=== PATIENT | male | born 1935 | race Caucasian/White ===

== ENCOUNTER 2017-11-16 01:52 | Outpatient (CLI) | payer OTHER ==
[2016-05-12 00:28] VITALS: BMI 38.3
== END 2017-11-16 02:12 | disposition short-term general hospital (02) ==
LOC: AMBL 01:52
PROVIDERS: ATTEND Family Medicine
DX: M79.672 Pain in left foot (principal); M79.671 Pain in right foot

== ENCOUNTER 2018-02-07 19:46 | Outpatient (CLI) ==
[2016-05-12 00:28] VITALS: BMI 38.3
== END 2018-02-07 20:07 | disposition short-term general hospital (02) ==
LOC: AMBL 19:46
PROVIDERS: ATTEND Internal Medicine Geriatric Medicine
DX: R05 Cough (principal); R06.02 Shortness of breath

== ENCOUNTER 2018-02-10 13:40 | Outpatient (CLI) ==
[2016-05-12 00:28] VITALS: BMI 38.3
== END 2018-02-10 13:59 | disposition short-term general hospital (02) ==
LOC: AMBL 13:40
PROVIDERS: ATTEND Internal Medicine Geriatric Medicine
DX: R09.89 Other specified symptoms and signs involving the circulatory and respiratory systems (principal); R05 Cough; T17.900A Unspecified foreign body in respiratory tract, part unspecified causing asphyxiation, initial encounter

== ENCOUNTER 2018-03-01 15:03 | Outpatient (CLI) ==
[2016-05-12 00:28] VITALS: BMI 38.3
--- NOTE | 2018-03-02 08:17 | DI ---
EXAM: Right toe, second digit three-view HISTORY: Pain right second toe COMPARISON: None FINDINGS/IMPRESSION: No fracture or dislocation identified. Flexed position of the toes somewhat li mits evaluation. 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
== END 2018-03-01 15:04 | disposition home or self-care (01) ==
LOC: OPMED 15:03
PROVIDERS: ATTEND Family Medicine
DX: I87.2 Venous insufficiency (chronic) (peripheral) (principal); L03.115 Cellulitis of right lower limb; L03.116 Cellulitis of left lower limb; M79.674 Pain in right toe(s)

== ENCOUNTER 2018-03-03 13:20 | Outpatient (CLI) ==
[2016-05-12 00:28] VITALS: BMI 38.3
== END 2018-03-03 13:21 | disposition home or self-care (01) ==
LOC: NONPT 13:20
PROVIDERS: ATTEND Family Medicine
DX: I50.9 Heart failure, unspecified (principal); N19 Unspecified kidney failure
CPT/HCPCS: 80048

== ENCOUNTER 2018-03-16 22:48 | Observation (INO) | payer OTHER ==
[2018-03-16] MEDS ORDERED: DEXTROSE 50%-WATER ABBOJECT ONE (23:08)
[2018-03-16] MEDS ORDERED: DEXTROSE 50%-WATER ABBOJECT IVP STA ×2 (23:14→23:15)
[2018-03-16] MEDS ORDERED: DEXTROSE 5%-NS IV SOLUTION 1,000 ML IV STA ×2 (23:15→23:17)
--- NOTE | 2018-03-17 00:26 | ED.PDOC ---
General ED Provider: Dr. KIM BHATIA-ER Chief Complaint: Hypoglycemia Stated Complaint: his bs is low--30---given f30---xl improved then down to 40--- takes diabeta at the long-term Time Seen by Physician: 22:55 Mode of Arrival: Ambulance Information Source: Patient, EMT Exam Limitations: No limitations Primary Care Provider: RONALD DONNELLY Nursing and Triage Documentation Reviewed and Agree: Yes Does patient meet sepsis criteria?: No System Inflammatory Response Syndrome: Not Applicable Sepsis Protocol: For patient's 13 years and over: Temp is 96.8 and below OR 101 and greater Pulse >90 BPM Resp >20/minute Acutely Altered Mental Status Are patient's symptoms suggestive of a new infection, such as: -Pneumonia -Skin, Soft Tissue -Endocarditis -UTI -Bone, Joint Infection -Implantable Device -Acute Abdominal Infection -Wound Infection -Meningitis -Blood Stream Catheter Infection -Unknown Endocrine Complaint Exam - Diabetic Complication Complaint/Exam Onset/Duration: iunknown Symptoms Are: Still present Timing: Constant Initial Severity: Mild Current Severity: Moderate Character: Lethargic, Unresponsive Aggravating: Reports: Diet change Associated Signs and Symptoms: Denies: Decreased LOC, Polydipsia, Polyuria, Polyphagia, Weight loss, Abdominal pain, Nausea, Vomiting, Fever, Diaphoresis, Fruity breath Related History: Reports: DM 2 Acetone on Breath: No Dry Mucous Membranes: No Kussmaul Respirations: No Glascow Coma Scale (see protocol): 15 Meningeal Signs: No Focal Weakness: None Focal Sensory Loss: None Gait: Normal Nystagmus Present: No Gag Reflex Present: Yes Finger to Nose: Normal Romberg Test Positive: No Babinski Sign: Negative Right, Negative Left Heel to Toe Normal: Yes Differential Diagnoses: Hypoglycemia Quality Indicator For Non-Traumatic Chest Pain/Syncope: EKG Performed Review of Systems - Review Of Systems Constitutional: Reports: No symptoms Eyes: Reports: No symptoms Ears, Nose, Mouth, Throat: Reports: No symptoms Respiratory: Reports: No symptoms Cardiac: Reports: No symptoms GI: Reports: No symptoms : Reports: No symptoms Musculoskeletal: Reports: No symptoms Skin: Reports: No symptoms Neurological: Reports: Cognitive dysfunction Endocrine: Reports: No symptoms Hematologic/Lymphatic: Reports: No symptoms All Other Systems: Reviewed and Negative Past Medical History - Past Medical History Previously Healthy: No Endocrine: Reports: Unknown Cardiovascular: Reports: Unknown Respiratory: Reports: Unknown Hematological: Reports: Unknown Gastrointestinal: Reports: Unknown Genitourinary: Reports: Unknown Neuro/Psych: Reports: Unknown Musculoskeletal: Reports: Unknown Cancer: Reports: Unknown - Surgical History General Surgical History: Reports: Unknown - Family History Family History: Reports: Unknown - Social History Smoking Status: Former smoker Hx Substance Use: No Alcohol Screening: None Lives: In Care Home - Immunizations Tetanus Shot up to Date: No (unsure) Physical Exam - Physical Exam Appearance: Ill-appearing, No pain distress, Well-nourished Eyes: WOLFGANG, EOMI, Conjunctiva clear ENT: Ears normal, Nose normal, Oropharynx normal Neck: Supple Respiratory: Airway patent, Breath sounds clear, Breath sounds equal, Respirations nonlabored Cardiovascular: RRR, Pulses normal, No rub, No murmur GI/: Soft Musculoskeletal: Normal strength Skin: Warm, Dry, Normal color Neurological: Alert, Disoriented Psychiatric: Affect appropriate, Mood appropriate Interpretation - EKG Interpretation Time of EKG #1: 22:55 Rate: Normal Rhythm: Other Ectopy: None [place]: NL ST Segment: Normal Interpretation: atrial fib Re-Evaluation - Re-Evaluation Time of Re-Evaluation: 00:29 Status: Improved Vital Signs Stable: Yes Pain Level: 0 Appearance: NAD Lungs: Clear Skin: Warm and Dry Neuro: Alert and Oriented X3 CV: RRR Additional Comments: son agrees mental status is back to baseline Physician Notification - Case Discussed Physician Notified: dr donnelly notified Time of Notification: 00:29 Critical Care Note - Critical Care Note Total Time (mins): 30 Course - Course Hematology/Chemistry: 03/16/18 23:35 03/16/18 23:35 Orders, Labs, Meds: Lab Review 03/16/18 03/16/18 23:35 23:35 WBC 12.16 H RBC 4.05 L Hgb 10.3 L Hct 33.2 L MCV 82.0 MCH 25.4 L MCHC 31.0 L RDW Coeff of Cedric 15.5 H Plt Count 226 Immature Gran % (Auto) 0.6 Neut % (Auto) 79.3 Lymph % (Auto) 11.0 [place] % (Auto) 6.1 Eos % (Auto) 2.3 Baso % (Auto) 0.7 Immature Gran # (Auto) 0.1 Neut # (Auto) 9.7 H Lymph # (Auto) 1.3 [place] # (Auto) 0.7 Eos # (Auto) 0.3 Baso # (Auto) 0.1 Sodium 138.7 Potassium 3.77 Chloride 102.1 Carbon Dioxide 31.0 H Anion Gap 9.37 BUN 19.7 Creatinine 1.22 H Estimated GFR (MDRD) 57.00 BUN/Creatinine Ratio 16.14 Glucose 179.4 H Calcium 8.95 Total Creatine Kinase < 20.0 L Troponin I < 0.012 Orders Category Date Time Status ADMIT OBSERVATION [PLACE PATIENT OBSERVATION] .TO ADMISSION 03/17/18 00:31 Active SCU (MONITORED BED) EKG-(ED ONLY) Stat CARDIO 03/16/18 22:58 Completed EKG-(IP & OP ONLY) DAILY CARDIO 03/18/18 06:00 Ordered EKG-(IP & OP ONLY) DAILY CARDIO 03/19/18 06:00 Ordered OXYGEN Routine CARDIO 03/17/18 00:33 Active ACTIVITY .BR with BRP CARE 03/17/18 00:32 Active BLOOD GLUCOSE MONITORING Q1HR CARE 03/17/18 00:32 Active BLOOD GLUCOSE MONITORING Q1HR CARE 03/17/18 00:39 Active GIVE HS SNACK 2100 CARE 03/17/18 00:33 Active INTAKE & OUTPUT Q8HR CARE 03/17/18 00:32 Active TELEMETRY MONITORING TELE CARE 03/17/18 00:32 Active VITAL SIGNS Q4HR CARE 03/17/18 00:32 Active ADA 1800 ANATOLIY. DIET DIETARY 03/17/18 Breakfast Ordered HS SNACK DIETARY 03/17/18 Dinner Ordered ACCUCHECK (ED) [ED ACCUCHECK ASSESSMENT] .ONCE EMERGENCY 03/16/18 22:58 Active ACCUCHECK (ED) [ED ACCUCHECK ASSESSMENT] .ONCE EMERGENCY 03/16/18 23:16 Active ACCUCHECK (ED) [ED ACCUCHECK ASSESSMENT] Q1HR EMERGENCY 03/16/18 23:41 Active IV [ED IV/MEDIPORT/POWERPORT] .ONCE EMERGENCY 03/16/18 23:14 Active BASIC METABOLIC PANEL Stat LAB 03/16/18 23:35 Completed CBC W/ AUTO DIFF DAILY@0600 LAB 03/17/18 06:00 Ordered CBC W/ AUTO DIFF DAILY@0600 LAB 03/18/18 06:00 Ordered CBC W/ AUTO DIFF Stat LAB 03/16/18 23:35 Completed COMPREHENSIVE METABOLIC PANEL DAILY@0600 LAB 03/17/18 06:00 Ordered COMPREHENSIVE METABOLIC PANEL DAILY@0600 LAB 03/18/18 06:00 Ordered CREATINE KINASE Stat LAB 03/16/18 23:35 Completed TROPONIN I Stat LAB 03/16/18 23:35 Completed 0.9 % Sodium Chloride [Saline Flush] MEDS 03/16/18 23:14 Ordered 1 syr IVF PRN PRN Albuterol Sulfate [Proair Hfa] MEDS 03/17/18 00:33 Ordered 2 puff IH Q6H PRN Aspirin [Aspirin Chewable] MEDS 03/17/18 08:00 Ordered 81 mg PO DAILYWM Budesonide/Formoterol Fumarate [Symbicort 160-4.5 Mcg MEDS 03/17/18 09:00 Ordered Inhaler] 2 puff IH BID Carvedilol [Coreg] MEDS 03/17/18 09:00 Ordered 25 mg PO BID Dabigatran Etexilate Mesylate [Pradaxa] MEDS 03/17/18 09:00 Ordered 75 mg PO BID Dextrose 5 % and 0.9 % NaCl [Dextrose 5%-Ns IV Solution MEDS 03/16/18 23:15 Discontinued ] 1,000 ml IV 125 mls/hr Dextrose 5 % and 0.9 % NaCl [Dextrose 5%-Ns IV Solution MEDS 03/16/18 23:17 Active ] 1,000 ml IV 50 mls/hr Dextrose 50 % in Water [Dextrose 50%-Water Abboject] MEDS 03/16/18 23:14 Discontinued 100 ml IVP ONCE STA Dextrose 50 % in Water [Dextrose 50%-Water Abboject] MEDS 03/16/18 23:08 Discontinued 50 ml .ROUTE .STK-MED ONE Dextrose 50 % in Water [Dextrose 50%-Water Abboject] MEDS 03/16/18 23:15 Discontinued 50 ml IVP ONCE STA Felodipine [Plendil] MEDS 03/17/18 09:00 Ordered 5 mg PO DAILY Furosemide [Lasix Tab] MEDS 03/17/18 09:00 Ordered 40 mg PO BID Insulin Regular, Human [Humulin R] MEDS 03/17/18 00:38 Ordered See Protocol SUBCUT PRN PRN Levothyroxine Sodium [Synthroid] MEDS 03/17/18 09:00 Ordered 200 mcg PO DAILY Lovastatin [Mevacor] MEDS 03/17/18 09:00 Ordered 40 mg PO DAILY Nitroglycerin [Nitrostat] MEDS 03/17/18 00:33 Ordered 0.4 mg SL Q5MIN X 3 DOSES PRN Omeprazole [Prilosec] MEDS 03/17/18 06:30 Ordered 20 mg PO QDAC Prazosin HCl [Minipress] MEDS 03/17/18 09:00 Ordered 2 mg PO BID Quinapril HCl [Accupril] MEDS 03/17/18 09:00 Ordered 20 mg PO DAILY Sulfamethoxazole/Trimethoprim [Bactrim Ds 800/160 mg] MEDS 03/17/18 09:00 Ordered DOSE tab PO BID Tamsulosin HCl [Flomax] MEDS 03/17/18 09:00 Ordered 0.4 mg PO DAILY RESUSCITATION STATUS Routine OTHERS 03/17/18 00:32 Ordered Medications Generic Name Dose Route Start Last Admin Trade Name Freq PRN Reason Stop Dose Admin Albuterol Sulfate 2 puff 03/17/18 00:33 Proair Hfa IH Q6H PRN Wheezing Aspirin 81 mg 03/17/18 08:00 Aspirin Chewable PO DAILYWM [facility] Budesonide/Formoterol Fumarate 2 puff 03/17/18 09:00 Symbicort 160-4.5 Mcg Inhaler IH BID [facility] Dabigatran 75 mg 03/17/18 09:00 Pradaxa PO BID HARDEEP Felodipine 5 mg 03/17/18 09:00 Plendil PO DAILY [facility] Furosemide 40 mg 03/17/18 09:00 Lasix Tab PO BID [facility] Dextrose/Sodium Chloride 1,000 mls @ 50 mls/hr 03/16/18 23:17 03/16/18 23:20 Dextrose 5%-Ns Iv Solution IV 03/17/18 19:14 50 mls/hr .Q20H STA Administration Insulin Human Regular 0 unit 03/17/18 00:38 Humulin R SUBCUT PRN PRN Hyperglycemica Protocol Lovastatin 40 mg 03/17/18 09:00 Mevacor PO DAILY HARDEEP Nitroglycerin 0.4 mg 03/17/18 00:33 Nitrostat SL Q5MIN X 3 DOSES PRN Chest Pain Non-Formulary Medication 25 mg 03/17/18 09:00 Carvedilol [Coreg] PO BID HARDEEP Non-Formulary Medication 200 mcg 03/17/18 09:00 Levothyroxine Sodium [Synthroid] PO DAILY [facility] Non-Formulary Medication 2 mg 03/17/18 09:00 Prazosin Hcl [Minipress] PO BID HARDEEP Non-Formulary Medication 20 mg 03/17/18 09:00 Quinapril Hcl [Accupril] PO DAILY HAR[facility] Omeprazole 20 mg 03/17/18 06:30 Prilosec PO QDAC [facility]DE[facility] Sodium Chloride 1 syr 03/16/18 23:14 Saline Flush IVF PRN PRN To flush IV Tamsulosin HCl 0.4 mg 03/17/18 09:00 Flomax PO DAILY HARDEEP Trimethoprim/Sulfamethoxazole tab 03/17/18 09:00 Bactrim Ds 800/160 Mg PO BID HARDEEP Discontinued Medications Generic Name Dose Route Start Last Admin Trade Name Freq PRN Reason Stop Dose Admin Dextrose 100 ml 03/16/18 23:14 03/16/18 23:18 Dextrose 50%-Water Abboject IVP 03/16/18 23:15 100 ml ONCE STA Administration Dextrose 50 ml 03/16/18 23:15 03/16/18 23:20 Dextrose 50%-Water Abboject IVP 03/16/18 23:16 Not Given ONCE STA Dextrose/Sodium Chloride 1,000 mls @ 125 mls/hr 03/16/18 23:15 Dextrose 5%-Ns Iv Solution IV 03/17/18 07:14 .Q8H STA Vital Signs: Temp Pulse Resp BP Pulse Ox 03/16/18 22:50 97.2 F L 64 24 158/96 H 92 L Departure - Departure Time of Disposition: 00:29 Disposition: PLACED OBSERVATION Discharge Problem: Hypoglycemia Instructions: Hypoglycemia in a Person with Diabetes (ED) Condition: Stable Pt referred to PMD for follow-up: Yes IPMP verified?: No Allergies/Adverse Reactions: Allergies No Known Allergies Allergy (Verified 05/12/16 00:28) Home Medications: Ambulatory Orders Albuterol Sulfate [Proair Hfa] 2 puff IH Q6H PRN 03/20/14 Aspirin [Aspirin Chewable] 81 mg PO DAILYWM 03/20/14 Budesonide/Formoterol Fumarate [Symbicort 160-4.5 Mcg Inhaler] 2 puff IH BID Calcium Carbonate/Vitamin D3 [Calcium 600 + Vit D 200 Tablet] 1 each PO BID Carvedilol [Coreg] 25 mg PO BID 03/20/14 Felodipine [Plendil] 5 mg PO DAILY 03/20/14 Fluticasone/Salmeterol 250/50 [Advair 250-50 Diskus] 1 puff IH BID 03/20/14 Furosemide [Lasix] 40 mg PO BID 03/20/14 Glyburide [Diabeta] 5 mg PO TID 03/20/14 Levothyroxine Sodium [Synthroid] 200 mcg PO DAILY 03/20/14 Lovastatin [Mevacor] 40 mg PO DAILY 03/20/14 Metformin HCl [Glucophage] 1,000 mg PO BIDWM 03/20/14 Nitroglycerin [Nitrostat] 0.4 mg SL Q5MIN X 3 DOSES PRN 03/20/14 Omeprazole [Prilosec] 20 mg PO QDAC 03/20/14 Prazosin HCl [Minipress] 2 mg PO BID 03/20/14 Quinapril HCl [Accupril] 20 mg PO DAILY 03/20/14 Sulfamethoxazole/Trimethoprim [Bactrim Ds Tablet] 1 each PO BID 03/20/14 Tamsulosin HCl [Flomax] 0.4 mg PO DAILY 03/20/14 Dabigatran Etexilate Mesylate [Pradaxa] 75 mg PO BID 02/16/15 Disposition Discussed With: Patient, Family
[2018-03-17] MEDS ORDERED: NITROSTAT SL PRN (00:33)
[2018-03-17] MEDS ORDERED: PROAIR HFA IH PRN (00:33)
[2018-03-17 02:28] VITALS: BMI 44.9
[2018-03-17] MEDS ORDERED: PRILOSEC PO SCH (06:30)
[2018-03-17] MEDS ORDERED: PLENDIL PO SCH (09:00)
[2018-03-17] MEDS ORDERED: PRAZOSIN HCL 2 MG PO SCH (09:00)
[2018-03-17] MEDS ORDERED: MEVACOR PO SCH ×2 (09:00→21:00)
[2018-03-17] MEDS ORDERED: SYMBICORT 160-4.5 MCG INHALER IH SCH (09:00)
[2018-03-17] MEDS ORDERED: BACTRIM DS 800/160 MG PO SCH (09:00)
[2018-03-17] MEDS ORDERED: LASIX TAB PO SCH (09:00)
[2018-03-17] MEDS ORDERED: QUINAPRIL HCL 20 MG PO SCH (09:00)
[2018-03-17] MEDS: CALMOSEPTINE OINTMENT TP SCH ×2 (09:32→22:31)
[2018-03-17] MEDS ORDERED: ACETAMINOPHEN PO PRN (11:29)
[2018-03-17] MEDS ORDERED: SIMETH PO PRN (11:29)
[2018-03-17] MEDS ORDERED: GUAIFENESIN PO PRN (11:29)
[2018-03-17] MEDS ORDERED: MAG HYDROX PO PRN (11:29)
[2018-03-17] MEDS ORDERED: AL HYDROX PO PRN (11:29)
[2018-03-17] MEDS ORDERED: POTASSIUM CHLORIDE PO SCH (11:45)
[2018-03-17] MEDS ORDERED: NON-FORMULARY MEDICATION (Diltiazem Hcl [Cardizem] 120 MG) PO SCH (11:45)
[2018-03-17] MEDS: ASPIRIN CHEWABLE PO SCH (12:27)
[2018-03-17] MEDS: NON-FORMULARY MEDICATION (Carvedilol [Coreg] 25 MG) PO SCH ×2 (12:28→22:24)
[2018-03-17] MEDS: NON-FORMULARY MEDICATION (Buspirone Hcl [Buspirone Hcl] 7.5 MG) PO SCH ×2 (12:28→22:21)
[2018-03-17] MEDS: SALMETEROL IH SCH ×2 (12:29→22:25)
[2018-03-17] MEDS: FLUTICASONE IH SCH ×2 (12:29→22:25)
[2018-03-17] MEDS: FLOMAX PO SCH (12:29)
[2018-03-17] MEDS: NON-FORMULARY MEDICATION (Levothyroxine Sodium [Synthroid] 200 MCG) PO SCH (12:30)
[2018-03-17] MEDS: PRADAXA PO SCH ×2 (12:30→22:28)
[2018-03-17] MEDS: HUMULIN R SUBCUT PRN ×3 (12:31→18:00)
[2018-03-17] MEDS ORDERED: LANTUS SUBCUT ONE (21:00)
[2018-03-17] MEDS ORDERED: MAGNESIUM PO SCH (21:00)
[2018-03-17] MEDS ORDERED: INSULIN GLARGINE HUM REC ANLOG 75 UNIT SQ SCH (21:00)
[2018-03-17] MEDS: ACETAMINOPHEN PO PRN (22:00)
[2018-03-17] MEDS: HYDROCODONE PO PRN (22:00)
[2018-03-17] MEDS: [UNRECOGNIZED DRUG - OTHER] PO PRN (22:00)
[2018-03-17] MEDS ORDERED: BENADRYL ONE (22:06)
[2018-03-17] MEDS ORDERED: TYLENOL ONE (22:06)
[2018-03-17] MEDS ORDERED: BENADRYL PO SCH (22:30)
[2018-03-18] MEDS: HUMULIN R SUBCUT PRN ×4 (01:55→14:20)
[2018-03-18] MEDS: NON-FORMULARY MEDICATION (Levothyroxine Sodium [Synthroid] 200 MCG) PO SCH (06:08)
[2018-03-18] MEDS: ACETAMINOPHEN PO PRN (06:09)
[2018-03-18] MEDS: [UNRECOGNIZED DRUG - OTHER] PO PRN (06:09)
[2018-03-18] MEDS: HYDROCODONE PO PRN (06:09)
[2018-03-18] MEDS ORDERED: LASIX TAB PO SCH (06:30)
[2018-03-18] MEDS ORDERED: PRILOSEC PO SCH (06:30)
[2018-03-18] MEDS ORDERED: NON-FORMULARY MEDICATION (Furosemide [Lasix Tab] 40 MG) PO SCH (06:30)
[2018-03-18] MEDS ORDERED: HYDROCODONE PO PRN (07:30)
[2018-03-18] MEDS ORDERED: ACETAMINOPHEN PO PRN (07:30)
[2018-03-18] MEDS ORDERED: [UNRECOGNIZED DRUG - OTHER] PO PRN (07:30)
[2018-03-18] MEDS ORDERED: NON-FORMULARY MEDICATION (Ferrous Sulfate [Ferrous Sulfate] 325 MG) PO SCH (09:00)
[2018-03-18] MEDS ORDERED: NON-FORMULARY MEDICATION (Calcitriol [Calcitriol] 0.25 MCG) PO SCH (09:00)
[2018-03-18] MEDS ORDERED: MAGNESIUM PO SCH (09:00)
[2018-03-18] MEDS ORDERED: NON-FORMULARY MEDICATION (Diltiazem Hcl [Cardizem] 120 MG) PO SCH (09:00)
[2018-03-18] MEDS ORDERED: POTASSIUM CHLORIDE PO SCH (09:00)
[2018-03-18] MEDS ORDERED: NON-FORMULARY MEDICATION (Buspirone Hcl [Buspirone Hcl] 7.5 MG) PO SCH (09:00)
[2018-03-18] MEDS ORDERED: FLUTICASONE IH SCH (09:00)
[2018-03-18] MEDS ORDERED: DOCUSATE SODIUM PO SCH (09:00)
[2018-03-18] MEDS ORDERED: SALMETEROL IH SCH (09:00)
[2018-03-18] MEDS ORDERED: MULTIVITAMIN PO SCH (09:00)
[2018-03-18] MEDS: PRADAXA PO SCH (09:51)
[2018-03-18] MEDS: ASPIRIN CHEWABLE PO SCH (09:55)
[2018-03-18] MEDS: FLOMAX PO SCH (09:59)
[2018-03-18] MEDS: NON-FORMULARY MEDICATION (Carvedilol [Coreg] 25 MG) PO SCH (10:07)
[2018-03-18] MEDS: CALMOSEPTINE OINTMENT TP SCH (10:08)
[2018-03-18 13:27] VITALS: BP 108/65; TEMP 98.6
[2018-03-19] MEDS ORDERED: NON-FORMULARY MEDICATION (Furosemide [Lasix Tab] 40 MG) PO SCH (06:30)
== END 2018-03-18 15:15 ==
LOC: ED 22:48 → SCU 03-17 00:52
PROVIDERS: ADMIT Family Medicine; ATTEND Family Medicine
DX: E11.9 Type 2 diabetes mellitus without complications (principal); R41.0 Disorientation, unspecified
CPT/HCPCS: 36415; 80048; 80053; 82550; 82962; 84484; 85025; 93005; 93010; 96360; 96361; 96374; 96375; 99284; 99285

== ENCOUNTER 2018-07-10 07:30 | Emergency (ER) ==
[2018-07-10 07:40] VITALS: BP 129/96; TEMP 97.2; BMI 45.1
[2018-07-10] MEDS ORDERED: DUONEB NEB STA (08:06)
--- NOTE | 2018-07-10 08:20 | ED.PDOC ---
General ED Provider: Dr. KIM WOLFF Chief Complaint: Shortness of Air Stated Complaint: Shortness of breath; Sudden onset this AM. Reported by NH staff this morning. Patient appears to have easy non labored breathing at presence. Primarily has nasal congestion and states he only has problems getting a air is when he attempts nasal breathing Time Seen by Physician: 07:40 Mode of Arrival: Ambulance Information Source: Intermediate, EMT Exam Limitations: No limitations Primary Care Provider: RONALD ROSALES Referred to ED by: Other Nursing and Triage Documentation Reviewed and Agree: Yes Does patient meet sepsis criteria?: No System Inflammatory Response Syndrome: Not Applicable Sepsis Protocol: For patient's 13 years and over: Temp is 96.8 and below OR 101 and greater Pulse >90 BPM Resp >20/minute Acutely Altered Mental Status Are patient's symptoms suggestive of a new infection, such as: -Pneumonia -Skin, Soft Tissue -Endocarditis -UTI -Bone, Joint Infection -Implantable Device -Acute Abdominal Infection -Wound Infection -Meningitis -Blood Stream Catheter Infection -Unknown Respiratory Complaint Exam - Respiratory Complaint/Exam Onset/Duration: This AM Symptoms Are: Still present Timing: Intermittent Initial Severity: Moderate Current Severity: Mild Location: Nose Character: Denies: Productive cough, Non-productive cough, Dry cough, Barking cough, Bronchospastic cough Aggravating: Reports: None Alleviating: Reports: Upright position, Nasal suction. Denies: OTC Meds, Spontaneous resolution Associated Signs and Symptoms: Reports: Nasal congestion. Denies: Rapid breathing, Dyspnea, Fever, Chills, Chest pain, Pleuritic chest pain, Wheezing, Hemoptysis, Dizziness, Calf pain, Calf swelling, Edema, URI, Hoarseness, Sinus discomfort, Vomiting, Sore throat, Weight loss, Decreased oral intake, Increased thirst, Increased appetite, Increased urination Related History: Denies: Similar episode History of Healthcare-Acquired Pneumonia: No Related Surgical History: Reports: None Pulmonary Embolism Risk Factors: None Cardiac Risk Factors: Reports: CHF Pseudomonas Risk Factors: Reports: None Tuberculosis Risk Factors: Reports: None Status Asthmaticus Risk Factors: Reports: None Home Oxygen Use: No Recent Stress Test: No Recent Echo/LV Function: No Current Antibiotic Use: No Current Asthma Medication Use: Yes Respiratory Distress: None Dysphagia Present: No Stridor Present: No JVD Present: No Accessory Muscle Use: No Retractions: Not Present Diminished Breath Sounds: Yes (bibasilar) Grunting Respirations: No Kussmaul Respirations: No Differential Diagnoses: CHF, Influenza, Other (Rhinorrhea;Rhinitis) Review of Systems - Review Of Systems Constitutional: Reports: No symptoms Eyes: Reports: No symptoms Ears, Nose, Mouth, Throat: Reports: Nose discharge. Denies: Ear pain, Ear discharge, Nose pain, Epistaxis, Mouth pain, Mouth swelling, Throat swelling Respiratory: Reports: Short of air Cardiac: Reports: No symptoms, Irregular heart rate GI: Reports: No symptoms : Reports: No symptoms Musculoskeletal: Reports: No symptoms Skin: Reports: No symptoms Neurological: Reports: No symptoms Endocrine: Reports: No symptoms Hematologic/Lymphatic: Reports: No symptoms All Other Systems: Reviewed and Negative Past Medical History - Past Medical History Previously Healthy: No Endocrine: Reports: Unknown Cardiovascular: Reports: Unknown Respiratory: Reports: Unknown Hematological: Reports: Unknown. Denies: None Gastrointestinal: Reports: Unknown Genitourinary: Reports: Unknown Neuro/Psych: Reports: Unknown Musculoskeletal: Reports: Unknown Cancer: Reports: Unknown - Surgical History General Surgical History: Reports: Unknown - Family History Family History: Reports: Unknown - Social History Smoking Status: Former smoker Hx Substance Use: No Alcohol Screening: None Physical Exam - Physical Exam Appearance: Well-appearing, Obese Ill-appearing: Mild Pain Distress: None Eyes: WOLFGANG, EOMI, Conjunctiva clear ENT: Oropharynx normal, Rhinorrhea (clear to white mucoid; nasal passageways edematous) Neck: Supple Respiratory: Airway patent, Breath sounds clear, Breath sounds equal, Breath sounds diminished (Bibasilar), Respirations nonlabored, Crackles (bibasilar- minimal dry) Cardiovascular: Irregular rhythm GI/: Soft, Nontender, No masses, Bowel sounds normal, No Organomegaly Musculoskeletal: Normal strength, ROM intact, No edema, No calf tenderness Skin: Warm, Dry, Normal color Neurological: Sensation intact, Motor intact, Reflexes intact, Cranial nerves intact, Alert, Oriented Interpretation - Radiology Interpretation Radiology Interpretation By: Radiologist Exam Interpreted: CXR (some bibasilar atelectasis, cardiomegaly), CT Scan ( Sinuses-paranasal sinusitis with septal deviation /partial obstruction ) Re-Evaluation - Re-Evaluation Time of Re-Evaluation: 10:15 Status: Improved Vital Signs Stable: Yes Appearance: NAD Lungs: Clear Skin: Warm and Dry Neuro: Alert and Oriented X3 CV: RRR Critical Care Note - Critical Care Note Total Time (mins): 60 Comments: Patient Pulmonary and cardiovascular status monitor; Telemetry revealed a fib CVR Lab and imaging studies reviewed . Meds prescribed Orders sent with patient at time of discharge Course - Course Hematology/Chemistry: 07/10/18 08:30 07/10/18 08:30 Orders, Labs, Meds: Lab Review 07/10/18 07/10/18 07/10/18 08:30 08:30 08:30 WBC 7.82 RBC 4.47 L Hgb 11.0 L Hct 37.2 L MCV 83.2 MCH 24.6 L MCHC 29.6 L RDW Coeff of Cedric 15.7 H Plt Count 185 Immature Gran % (Auto) 0.3 Neut % (Auto) 61.3 Lymph % (Auto) 22.6 [place] % (Auto) 6.4 Eos % (Auto) 8.6 H Baso % (Auto) 0.8 Immature Gran # (Auto) 0.0 Neut # (Auto) 4.8 Lymph # (Auto) 1.8 [place] # (Auto) 0.5 Eos # (Auto) 0.7 Baso # (Auto) 0.1 Sodium 142.8 Potassium 4.21 Chloride 98.2 Carbon Dioxide 34.6 H Anion Gap 14.21 BUN 19.9 Creatinine 1.13 H Estimated GFR (MDRD) 62.00 BUN/Creatinine Ratio 17.61 Glucose 101.7 Calcium 9.22 Magnesium 1.47 L Iron 81.2 TIBC 306 % Saturation 27 Total Bilirubin 0.54 AST 28.9 ALT 19.6 Alkaline Phosphatase 58.9 Troponin I < 0.012 Total Protein 6.76 Albumin 3.74 Globulin 3.02 Albumin/Globulin Ratio 1.23 TSH 21.600 H Free T4 1.93 Urine Color Urine Clarity Urine pH Ur Specific [place] Urine Protein Urine Glucose (UA) Urine Ketones Urine Blood Urine Nitrite Urine Bilirubin Urine Urobilinogen Ur Leukocyte Esterase Influ A Molecular Assay Influ B Molecular Assay 07/10/18 07/10/18 08:45 08:45 WBC RBC Hgb Hct MCV MCH MCHC RDW Coeff of Cedric Plt Count Immature Gran % (Auto) Neut % (Auto) Lymph % (Auto) [place] % (Auto) Eos % (Auto) Baso % (Auto) Immature Gran # (Auto) Neut # (Auto) Lymph # (Auto) [place] # (Auto) Eos # (Auto) Baso # (Auto) Sodium Potassium Chloride Carbon Dioxide Anion Gap BUN Creatinine Estimated GFR (MDRD) BUN/Creatinine Ratio Glucose Calcium Magnesium Iron TIBC % Saturation Total Bilirubin AST ALT Alkaline Phosphatase Troponin I Total Protein Albumin Globulin Albumin/Globulin Ratio TSH Free T4 Urine Color Yellow Urine Clarity Clear Urine pH 6.0 Ur Specific [place] <=1.005 Urine Protein Negative Urine Glucose (UA) Negative Urine Ketones Negative Urine Blood Negative Urine Nitrite Negative Urine Bilirubin Negative Urine Urobilinogen 0.2 Ur Leukocyte Esterase Negative Influ A Molecular Assay Negative by naat Influ B Molecular Assay Negative by naat Orders Category Date Time Status EKG-(ED ONLY) Stat CARDIO 07/10/18 07:56 Completed NEBULIZER TREATMENT Stat CARDIO 07/10/18 08:02 Completed CBC W/ AUTO DIFF Stat LAB 07/10/18 08:30 Completed CMP [COMPREHENSIVE METABOLIC PANEL] Stat LAB 07/10/18 08:30 Completed FLU A & B MOLECULAR [FLU A/B MOLECULAR] Stat LAB 07/10/18 08:45 Completed FREE T4 (FREE THYROXINE) Stat LAB 07/10/18 08:30 Completed IRON AND TIBC Stat LAB 07/10/18 08:30 Completed MAGNESIUM Stat LAB 07/10/18 08:30 Completed THYROID STIMULATING HORMONE Stat LAB 07/10/18 08:30 Completed TROPONIN I Stat LAB 07/10/18 08:30 Completed UA [URINALYSIS C & S IF INDICATED] Stat LAB 07/10/18 08:45 Completed 0.9 % Sodium Chloride [Saline Flush] MEDS 07/10/18 08:00 Active 1 syr IVF PRN PRN Fluticasone Propionate [Flonase] MEDS 07/10/18 09:35 Stat 2 spray TIM ONCE STA Ipratropium/Albuterol Neb [Duoneb] MEDS 07/10/18 08:06 Discontinued 1 vial NEB ONCE STA Magnesium Oxide [Mag-Ox] MEDS 07/10/18 09:42 Stat 400 mg PO ONCE STA Sodium Chloride [[place] Nasal [place]] MEDS 07/10/18 09:34 Stat 2 spray TIM ONCE STA CHEST, 1V AP ONLY Stat RADS 07/10/18 07:[address] SINUSES W/O CONTRAST Stat RADS 07/10/18 08:03 Completed Medications Generic Name Dose Route Start Last Admin Trade Name Freq PRN Reason Stop Dose Admin Sodium Chloride 1 syr 07/10/18 08:00 Saline Flush IVF PRN PRN To flush IV Discontinued Medications Generic Name Dose Route Start Last Admin Trade Name Freq PRN Reason Stop Dose Admin Albuterol/Ipratropium 1 vial 07/10/18 08:06 07/10/18 08:10 Duoneb NEB 07/10/18 08:07 1 vial ONCE STA Administration Fluticasone Propionate 2 spray 07/10/18 09:35 Flonase TIM 07/10/18 09:36 ONCE STA Sodium Chloride 2 spray 07/10/18 09:34 [place] Nasal [place] TIM 07/10/18 09:35 ONCE STA Vital Signs: Temp Pulse Resp BP Pulse Ox 07/10/18 07:30 97.2 F L 64 23 129/96 H 96 Departure - Departure Time of Disposition: 10:00 Disposition: DISCH/TSF TO [facility] Discharge Problem: Sinusitis nasal, Hypomagnesemia, Hypothyroidism, Nasal septal deviation Instructions: Rhinosinusitis (ED), Hypothyroidism (ED), Hypomagnesemia (ED) Condition: Good Pt referred to PMD for follow-up: Yes IPMP verified?: No Additional Instructions: Begin therapy as follows: Flonase Nasal AQ 2 nasal sprays/inhalation twice daily Mag oxide 200 mg daily Adjust Levothyroxine and give additional 12.5 mcg daily (TSH elevated to 21.6;; free T4 1.93) Begin Mucinex 600 mg bid for 10 days ( first dose given in ER) BMP, Mg level in 2 wks Re check TSH and Free T4 level in 4 weeks Advise PCP of result Follow up with Dr Rosales in next 2 weeks Allergies/Adverse Reactions: Allergies No Known Allergies Allergy (Verified 07/10/18 07:44) Home Medications: Ambulatory Orders Aspirin [Aspirin Chewable] 81 mg PO DAILYWM 03/20/14 Carvedilol [Coreg] 25 mg PO BID 03/20/14 Fluticasone/Salmeterol 250/50 [Advair 250-50 Diskus] 1 puff IH BID 03/20/14 Levothyroxine Sodium [Synthroid] 200 mcg PO DAILY 03/20/14 Lovastatin [Mevacor] 40 mg PO BEDTIME 03/20/14 Nitroglycerin [Nitrostat] 0.4 mg SL Q5MIN X 3 DOSES PRN 03/20/14 Omeprazole [Prilosec] 20 mg PO QDAC 03/20/14 Tamsulosin HCl [Flomax] 0.4 mg PO DAILY 03/20/14 Dabigatran Etexilate Mesylate [Pradaxa] 75 mg PO BID 02/16/15 Acetaminophen [Tylenol Extra Strength] 1 tab PO Q6HR PRN 03/17/18 Buspirone HCl 7.5 mg PO BID 03/17/18 Calcitriol 0.25 mcg PO DAILY 03/17/18 Diltiazem HCl [Cardizem] 120 mg PO DAILY 03/17/18 Docusate Sodium [Colace] 1 tab PO DAILY 03/17/18 Ferrous Sulfate 325 mg PO DAILY 03/17/18 Furosemide [Lasix Tab] 40 mg PO QDAC 03/17/18 Guaifenesin [Guaifenesin ER] 1 tab PO BID PRN 03/17/18 Hydrocodone/Acetaminophen [Hydrocodone-Acetamin 5-325 mg] 1 tab PO Q6HR PRN Ipratropium/Albuterol Sulfate [Iprat-Albut 0.5-3(2.5) mg/3 ml] 3 ml IH QID 03/17 Mag Hydrox/Al Hydrox/Simeth [Mylanta Susp] 10 ml PO Q8HR PRN 03/17/18 Magnesium 70 mg PO BID 03/17/18 Multivitamin [Daily Multiple Vitamin] 1 tab PO DAILY 03/17/18 Potassium Chloride [K-Dur] 1 tab PO DAILY 03/17/18 Acetaminophen/Diphenhydramine [Tylenol Pm Ex-Strength Caplet] 2 each PO BEDTIME PRN 07/10/18 Calcium Carbonate/Vitamin D3 [Calcium 600 + D3 Softgel] 1 each PO BID 07/10/18 Insulin Glargine,Hum.rec.anlog [Lantus] 40 unit SUBCUT BEDTIME 07/10/18 Insulin Lispro [Humalog] 1 unit SUBCUT DIRECTED 07/10/18 Insulin Lispro [Humalog] 15 unit SUBCUT TIDWM 07/10/18 Linaclotide [Linzess] 72 mcg PO DAILY 07/10/18 Melatonin 10 mg PO BEDTIME 07/10/18 Mupirocin Calcium [Bactroban] 15 gm TP DIRECTED 07/10/18 Nystatin [Nystatin Cream] 1 applic TP BID 07/10/18 Disposition Discussed With: Patient
--- NOTE | 2018-07-10 09:12 | CT ---
EXAM: CT PARANASAL SINUSES HISTORY: Dyspnea, congestion TECHNIQUE: CT paranasal sinuses without contrast. Detailed axial sections. Coronal and sagittal re formations. 05/12/2016 FINDINGS: There is mild mucosal thickening in the floor of the left central frontal sinus. The ethm oid cells have moderate, relatively diffuse mucosal thickening with some sparing posteriorly. The sp henoid sinuses are clear. There is mild mucosal thickening in the left maxillary sinus, slightly mor e moderate thickening in the right maxillary sinus. No sinus fluid is seen. The nasal septum is gra dually deviated toward the right at its midportion. The turbinates are prominent in size and the cristina al cavity soft tissues appear edematous. The nasal cavity is mostly opacified. No gross postop sue ges are seen. Mastoid air cells are aerated. IMPRESSION: Diffuse chronic paranasal sinusitis with edematous turbinates and nasal cavity soft tiss ues likely leading to partial regional obstruction. Findings have developed since previous study.
--- NOTE | 2018-07-10 09:15 | DI ---
EXAM: CHEST FRONTAL VIEW HISTORY: Dyspnea, and basilar crackles. COMPARISON: 07/23/2012 FINDINGS: Cardiomegaly is stable. Ectasia of the thoracic aorta. Low lung volumes. No evidence of vascular congestion or pneumothorax. No visible pleural fluid on this limited exam. No clearly def ined basilar consolidations although some atelectasis is likely. IMPRESSION: 1. Probable basilar atelectasis. Low lung volumes. Stable cardiomegaly. If symptoms persist, cons ider follow up with full inspiration, standing two-view chest radiography using PA and lateral techni que.
[2018-07-10] MEDS ORDERED: OCEAN NASAL SPRAY NAS STA (09:34)
[2018-07-10] MEDS ORDERED: FLONASE NAS STA (09:35)
[2018-07-10] MEDS ORDERED: MAG-OX PO STA (09:42)
[2018-07-10] MEDS ORDERED: MUCINEX PO STA (09:58)
== END 2018-07-10 12:16 ==
LOC: ED 07:30
DX: E03.9 Hypothyroidism, unspecified (principal); E83.42 Hypomagnesemia; J34.2 Deviated nasal septum; J32.9 Chronic sinusitis, unspecified; I50.9 Heart failure, unspecified; Z79.899 Other long term (current) drug therapy; R41.0 Disorientation, unspecified; R06.03 Acute respiratory distress
CPT/HCPCS: 36415; 80053; 81001; 83540; 83550; 83735; 84439; 84443; 84484; 85025; 87502; 93005; 93010; 94640; 99283

== ENCOUNTER 2018-07-24 13:12 | Outpatient (CLI) | END 2018-07-24 13:13 | disposition home or self-care (01) | LOC: NONPT 13:12 | PROVIDERS: ATTEND Family Medicine | DX: N19 Unspecified kidney failure (principal) | CPT/HCPCS: 81001; 82570; 84156 ==